=== PATIENT | male | born 1990 | race Caucasian/White ===

== ENCOUNTER → 2017-03-07 | Outpatient (CLI) | payer OTHER ==
--- NOTE | 2017-03-07 14:05 | MR ---
EXAMINATION: MRI of the right knee HISTORY: Pain COMPARISON: Radiographs dated 02/24/2016, MRI dated 04/19/2016. TECHNIQUE: Multiplanar and multisequence images obtained of the right knee without contrast. FINDINGS: The patellar and quadriceps tendons appear intact. The ACL and the PCL appear intact. Ther e is an oblique tear through the posterior horn of the medial meniscus with a vertical tear noted at the junction of the posterior horn and body. The lateral meniscus is intact. The medial collateral and lateral lateral collateral ligament complexes appear intact. There is a trace edema within the s uperior lateral aspect of Hoffa's fat pad. Mild articular cartilage irregularity is noted within the patellofemoral compartment. A trace edema is noted underlying the origin of the medial collateral l igament within the medial femoral condyle. There is a trace joint fluid without a significant Romano' s cyst. IMPRESSION: 1. Complex tear of the body and posterior horn of the medial meniscus. 2. Trace edema within the superior lateral aspect of Hoffa's fat pad. Which could suggest early saenz llar tendon lateral femoral condyle friction syndrome. 3. Early patellofemoral chondromalacia.
== END ==
LOC: MW.MRI 08:07
PROVIDERS: ATTEND Orthopaedic Surgery
DX: S83.231A Complex tear of medial meniscus, current injury, right knee, initial encounter (principal); M25.461 Effusion, right knee; M22.41 Chondromalacia patellae, right knee
CPT/HCPCS: 73721-26-RT; 73721-RT

== ENCOUNTER 2017-04-03 09:29 | Day surgery (SDC) | payer OTHER ==
[~2017-04-03 09:29] MED LIST: Acetaminophen/HYDROcodone 325-5 MG Tab PO PRN; Lactated Ringers 1,000 ML IV SCH; ceFAZolin 2 GM in Premix Bag 1 BAG IV SCH
[2017-04-03] MEDS ORDERED: Propofol 200 MG/20 ML SDV ONE (10:00)
[2017-04-03] MEDS ORDERED: Lidocaine 2% 5 ML SDV ONE (10:00)
[2017-04-03] MEDS ORDERED: fentaNYL 100 MCG/2 ML SDV ONE ×2 (10:00→10:44)
[2017-04-03] MEDS ORDERED: Midazolam 1 MG/ML 2 ML SDV ONE (10:01)
[2017-04-03] MEDS ORDERED: Lidocaine 1% 50 ML MDV ONE (10:05)
--- NOTE | 2017-04-03 10:08 | PCM.PREANE ---
Preanesthetic Assessment - Anesthesia/Transfusion/Family Hx Anesthesia History: Prior Anesthesia Without Reaction Family History of Anesthesia Reaction: No Transfusion History: No Prior Transfusion(s) - Review of Systems General: No Symptoms Pulmonary: No Symptoms Cardiovascular: No Symptoms Gastrointestinal: No symptoms Neurological: No Symptoms Other: Reports: None - Physical Assessment NPO Status Date: 04/02/17 Height: 1.88 m Weight: 94.347 kg ASA Class: 1 Mental Status: Alert & Oriented x3 Airway Class: Mallampati = 1 Dentition: Reports: Normal Dentition ROM/Head Extension: Full Lungs: Clear to auscultation, Normal respiratory effort Cardiovascular: Regular Rate, Regular Rhythm - Allergies Allergies/Adverse Reactions: Allergies Allergy/AdvReac Type Severity Reaction Status Date / Time No Known Allergies Allergy Verified 03/30/17 11:41 - Blood Blood Available: No - Anesthesia Plan Pre-Op Medication Ordered: None - Acknowledgements Anesthesia Type Planned: General Anesthesia Pt an Appropriate Candidate for the Planned Anesthesia: Yes Alternatives and Risks of Anesthesia Discussed w Pt/Guardian: Yes Pt/Guardian Understands and Agrees with Anesthesia Plan: Yes PreAnesthesia Questionnaire - Past Health History Medical/Surgical History: Denies Medical/Surgical History HEENT History: Reports: Other (See Below) Other HEENT History: wears contacts Musculoskeletal History: Reports: Fracture Other Musculoskeletal History: surgery for fx wrist as a child - Past Surgical History Head Surgeries/Procedures: Reports: None - SUBSTANCE USE Smoking Status *Q: Never Smoker Recreational Drug Use History: No - HOME MEDS Home Medications: Home Meds . [No Known Home Meds] 03/30/17 [History] - CURRENT (IN HOUSE) MEDS Current Meds: Current Medications Hydrocodone Bitart/Acetaminophen (Barco 325-5 Mg) 1 - 2 tab PO Q4H PRN PRN Reason: Pain Lactated Ringer's (Ringers, Lactated) 1,000 mls @ 100 mls/hr IV ASDIRECTED JUAN MANUEL Cefazolin Sodium/Dextrose 2 gm (/ Premix) 50 mls @ 100 mls/hr IV ONCALL JUAN MANUEL Discontinued Medications Fentanyl (Sublimaze) Confirm Administered Dose 100 mcg .ROUTE .STK-MED ONE Stop: 04/03/17 10:01 Lidocaine (Xylocaine-Mpf 2%) Confirm Administered Dose 5 ml .ROUTE .STK-MED ONE Stop: 04/03/17 10:01 Midazolam HCl (Versed 1 Mg/Ml) Confirm Administered Dose 2 mg .ROUTE .STK-MED ONE Stop: 04/03/17 10:02 Propofol (Diprivan 20 Ml) Confirm Administered Dose 200 mg .ROUTE .STK-MED ONE Stop: 04/03/17 10:01
[2017-04-03] MEDS ORDERED: fentaNYL 100 MCG/2 ML SDV IVPUSH PRN (10:55)
--- NOTE | 2017-04-03 11:10 | PCM.OPNOTE ---
- General Post-Op/Procedure Note Date of Surgery/Procedure: 04/03/17 Operative Procedure(s): R knee arthroscopy with PMM Post-Op Diagnosis: R knee medial meniscus tear Anesthesia Technique: General LMA Primary Surgeon: Noni Smith Tracer Bullet Charging Machine Operator: Matias Richard in mLs: 5 Condition: Good Free Text/Narrative:: tt=17 min #[id number]
--- NOTE | 2017-04-03 11:36 | PCM.POSTAN ---
POST ANESTHESIA ASSESSMENT - MENTAL STATUS Mental Status: alert, oriented - RESPIRATORY Respiratory Status: respiratory rate WNL, airway patent - CARDIOVASCULAR CV Status: pulse rate WNL, blood pressure stable - GASTROINTESTINAL GI Status: no symptoms - POST OP HYDRATION Hydration Status: adequate & stable
--- NOTE | 2017-04-03 12:10 | PCM48HPAN ---
Post Anesthesia Note - EVALUATION WITHIN 48HRS OF ANESTHETIC Vital Signs in Normal Range: Yes Patient Participated in Evaluation: Yes Respiratory Function Stable: Yes Airway Patent: Yes Cardiovascular Function Stable: Yes Hydration Status Stable: Yes Pain Control Satisfactory: Yes Nausea and Vomiting Control Satisfactory: Yes Mental Status Recovered: Yes
[2017-04-03 14:26] VITALS: BP 130/74
--- NOTE | 2017-04-03 19:24 | OR ---
SURGEON: Noni Smith MD DATE OF PROCEDURE: 04/03/2017 PREOPERATIVE DIAGNOSIS: Right knee medial meniscus tear. POSTOPERATIVE DIAGNOSIS: Right knee medial meniscus tear. PROCEDURE: Right knee arthroscopy with partial medial meniscectomy. TILE BURNER: Matias Richard PA-C. ANESTHESIA: General. ESTIMATED BLOOD LOSS: 5 mL. TOURNIQUET TIME: 17 minutes. COMPLICATIONS: None. DVT PROPHYLAXIS: Not indicated. IMPLANTS USED: None. 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 He has had complaint of persistent right knee pain since November. He did have an MRI, which showed a complex tear of the medial meniscus. Due to his lack of response to conservative treatment, I did recommend surgical intervention. The risks and goals of procedure were discussed with the patient and were documented preoperatively. He agreed to proceed. DESCRIPTION OF PROCEDURE: The patient was properly identified and brought to the operating room. He was transferred from the OR cart and placed on the operating table in supine position. General anesthesia was administered. After adequate anesthesia was obtained, a well-padded tourniquet was applied to the right lower extremity. The right lower extremity was then prepped in standard fashion using ChloraPrep solution. It was then sterilely draped. A time-out was performed to ensure correct site and procedure. Preoperative antibiotics were given. The surgical site had been marked preoperatively. An Esmarch was used to exsanguinate the right lower extremity and the tourniquet was inflated to 250 mmHg. A lateral portal arthrotomy was established. Blunt trocar and cannula were introduced into the suprapatellar pouch. Camera, inflow, and outflow were assembled. No significant synovitis was noted. The patellofemoral joint was visualized. The patella appeared to track centrally. I then extended down the lateral and medial gutter. No loose bodies were identified. I then entered the medial compartment. A medial portal arthrotomy was established. A blunt probe was inserted. He was found to have a complex radial tear along the posterior horn of the medial meniscus, which involved the central portion of the meniscus. Using a combination of biters and shaver, this was resected back to a stable remnant. A small area with a horizontal split was noted. Both the superior and inferior margins were probed and showed good stability. The joint surfaces were then inspected. No significant degenerative changes were noted. I then entered the notch. Both the ACL and PCL were visualized and probed and found to be intact. I then entered the lateral compartment. The meniscus showed minor degenerative fraying centrally. The lateral tibial plateau did show extensive softening consistent with grade 1 chondromalacia. No degenerative findings were noted along the lateral femoral condyle. I then re-entered the patellofemoral joint. There was an area of chondromalacia along the undersurface of the patella along the medial superior aspect. This was probed and loose cartilage flaps were noted. The shaver was then used to perform a chondroplasty in this area. The area was again probed and no further loose cartilage was noted. There was a similar area which was much smaller in size located over the lateral aspect of the patella which was central. A shaver was used to perform a chondroplasty in this area as well. The medial area of chondromalacia measured approximately 10 mm x 10 mm. The lateral area measured approximately 5 mm x 5 mm. No degenerative changes were noted along the trochlear groove. Instruments were then removed from the knee. The portal sites were closed with 3-0 nylon. Lidocaine 1% was injected along the portal tracts. Xeroform gauze was placed over the wound and a bulky dressing was applied. The tourniquet was then deflated. He was awakened from his anesthetic and transferred back to the operating room cart. He was brought to recovery room in stable condition. All needle and sponge counts were correct. LAQUITA / RA /[id number]
== END 2017-04-03 14:00 | disposition home or self-care (01) ==
LOC: MW.SDS 09:29
PROVIDERS: ATTEND Orthopaedic Surgery
DX: S83.231A Complex tear of medial meniscus, current injury, right knee, initial encounter (principal); M22.41 Chondromalacia patellae, right knee
CPT/HCPCS: 29881; J2250; J3010; J7120; 01400; 88304; J2704